=== PATIENT | male | born 1960 | race Native Hawaiian/Other Pacific Islander ===

== ENCOUNTER 2017-07-30 09:38 | Emergency (ER) | payer OTHER ==
[~2017-07-30] VITALS: Ht 170.2 cm; Wt 59.9 kg
== END 2017-07-30 11:42 | disposition home or self-care (01) ==
LOC: ED 09:38
DX: S80.12XA Contusion of left lower leg, initial encounter (principal); M79.605 Pain in left leg; W22.8XXA Striking against or struck by other objects, initial encounter
CPT/HCPCS: 99282